=== PATIENT | female | born 2000 | race Caucasian/White ===

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

== ENCOUNTER 2022-09-22 11:42 | Day surgery (SDC) | payer OTHER ==
[2022-09-20 09:55] VITALS: BMI 27.4
[~2022-09-22 11:42] MED LIST: LACTATED RINGERS 1,000 ML IV SCH
[2022-09-22 12:08] VITALS: RESP 16; TEMP 97.1
[2022-09-22] MEDS ORDERED: PROPOFOL 10 MG/ML 20 ML VIAL IV ONE (12:39)
[2022-09-22] MEDS ORDERED: LIDOCAINE 2% INJ 20 MG/ML (2 ML VIAL) ONE (12:39)
--- NOTE | 2022-09-22 12:48 | P.PCN ---
Date of Procedure: 09/22/22 Procedure(s) Performed: BRIEF HISTORY: Patient is a 22-year-old, pleasant, white female scheduled for an upper endoscopy as a part of evaluation of from epigastric discomfort, abdominal bloating and change in bowel habits. As a part of workup she was noted to have positive serology for celiac disease with tissue transglutaminase antibody IgG was slightly positive. She is hence scheduled for an upper endoscopy with duodenal biopsy PROCEDURE PERFORMED: Esophagogastroduodenoscopy with biopsy. PREOPERATIVE DIAGNOSIS: Abdominal pain/abdominal bloating/positive serology for celiac disease. IV sedation per anesthesia. PROCEDURE: After informed consent was obtained, the patient was brought into the endoscopy unit. IV sedation was administered by Anesthesia under continuous monitoring. Initially the Olympus GIF-140 video endoscope was inserted into the mouth. Esophagus intubated without any difficulty. It was gradually advanced into the stomach and duodenum and carefully examined. The bulb and the second part of the duodenum appeared normal. Multiple biopsies were done from the second part of the duodenum to evaluate for celiac disease. The scope at this time was withdrawn to the stomach, adequately insufflated with air, and upon careful examination, mucosa of the antrum, had minimal gastritis and biopsies were done from this area. Mucosa body, cardia and the fundus appeared normal. The scope was then withdrawn into the esophagus. The GE junction was located at 39 cm from the incisors. The esophagus appeared normal. There were no erosions or ulcerations seen and the patient tolerated the procedure well. IMPRESSION: 1. Normal-appearing duodenum status post multiple biopsies to evaluate for celiac disease. 2. Mild antral gastritis. RECOMMENDATIONS: The findings of this examination were discussed with the patient as well as a family. She was advised to follow with the biopsy results. She'll be seen in office in 2 weeks..
[2022-09-22 13:16] VITALS: BP 120/84; PULSE 83
== END 2022-09-22 13:24 | disposition home or self-care (01) ==
LOC: ORWHC2ENDO 11:42
PROVIDERS: ATTEND Internal Medicine Gastroenterology
DX: K29.50 Unspecified chronic gastritis without bleeding (principal)
CPT/HCPCS: 81025; 88305; 43239; J2704; J2001